=== PATIENT | female | born 2000 | race Caucasian/White ===

== ENCOUNTER → 2024-12-21 | Outpatient (CLI) | payer OTHER ==
[2024-12-21 14:31] VITALS: BP 111/76; PULSE 87; RESP 12; TEMP 98.5
--- NOTE | 2024-12-21 15:03 | P.SLEEP ---
History of Present Illness DATE: 12/21/2024 CONSULTATION/NEW PATIENT EVALUATION HISTORY OF PRESENT ILLNESS/SLEEP-WAKE EVALUATION: [id number]-year girl had b een evaluated in the sleep center for possible obstructive sleep apnea hypopnea syndrome and sleepiness. SLEEP SCHEDULE: Usually sleep schedule from 11 PM to 1011 AM. FALLING ASLEEP: Sometimes patient has difficulties with falling asleep, has TV set in bedroom. DURING SLEEP: Patient usually sleeps on the side and stomach position with snoring. No history of hypnogogical hallucinations, sleep paralysis. Questionable cataplexy on laughing. DURING THE DAY/WAKE STATE: In the morning patient wake up tired, falling asleep during the day, has problems with memory, depression and anxiety. Custer sleepiness scale is increased to 12. Patient may take nap at 12 PM. PAST MEDICAL HISTORY: Anxiety. PAST SURGICAL HISTORY: None. MEDICATIONS: Hydroxyzine 25 mg once a day. SOCIAL HISTORY: Please see below. FAMILY HISTORY: Please see below. REVIEW OF SYSTEMS: Snoring, sleepiness during the day. No fevers. No double vision. No recent chest pain. No shortness of breath. No abdominal pain. No bleeding episodes. No blood in urine. No seizure episodes. PHYSICAL EXAMINATION: GENERAL: A pleasant patient without any distress. VITAL SIGNS: Please see below, weight 103.4 pounds, BMI 19.6. HEENT: PERRLA, EOMI. Evaluation of oropharynx showed tongue protrudes midline, low position of soft palate Mallampati 3. NECK: Supple. No JVD. Thyroid is not palpable. 12-1/4 inches in circumference. LUNGS: Clear to percussion and to auscultation. Good air exchange. No wheezing or rhonchi. HEART: S1, S2 regular. No murmurs, gallops or rubs. ABDOMEN: Soft and nontender. Bowel sounds are present. No organomegaly appreciated. EXTREMITIES: No clubbing or cyanosis. [employer]: Awake, alert, and oriented x3. Cranial nerves 2 to 7 intact. There is no fasciculation or atrophy noted. No focal deficits observed. ASSESSMENT: 1. Snoring, low position of soft palate Mallampati 3, sleepiness. Possible obstructive sleep apnea hypopnea syndrome. 2. Patient sleeps long hours, does not feel refreshed if sleeps 8 hours, sleepy during the day with Custer Sleepiness Scale 12. Differential diagnosis include idiopathic hypersomnia and narcolepsy. 3. History of anxiety. PLAN: 1. Polysomnography for evaluation of patient's breathing during sleep. Multiple sleep latency test if polysomnogram will be negative for obstructive sleep apnea hypopnea syndrome. 2. Following plan after reading sleep study. 3. Preferable position during sleep on the side. 4. No driving if patient feels any sleepiness. Patient is aware of civil and criminal liability for unsafe driving. 5. Sleep hygiene with regular sleep time for at least 7.5-8 hours. Thank you very much for referring this patient for consultation. Sincerely, Easton Cadena MD, PhD, FAASM. Diplomat of [employer], Sleep Medicine Board by [employer] [employer] Director of [employer] [place] [employer] [facility] [place] cc: Richard Hastings MD Past Medical History Additional Past Medical History / Comment(s): Anxiety History of Any Multi-Drug Resistant Organisms: None Reported Past Surgical History: No Surgical Hx Reported Past Psychological History: Anxiety, Depression Additional Psychological History / Comment(s): Chronic depression - not on medication for this. Smoking Status: Never smoker Past Alcohol Use History: Rare Past Drug Use History: None Reported - Past Family History Mother Additional Family Medical History / Comment(s): Anxiety, Depression and could potentially have a blood clotting disorder (on blood thinners for the rest of her life). Father Additional Family Medical History / Comment(s): Possibly mentally ill (showed signs of hallucinations and paranoia - not sure if mental issue or possibly drug related) - per patiient Medications and Allergies Home Medications Medication Instructions Recorded Confirmed Type hydrOXYzine HCL [Hydroxyzine HCl] 25 mg PO DIRECTED 12/21/24 12/21/24 History Physical Exam Vitals: Vital Signs Temp Pulse Resp BP Pulse Ox 12/21/24 14:29 98.5 F 87 12 111/76 98 Intake and Output 12/20/24 12/21/24 12/21/24 22:59 06:59 14:59 Other: Weight 46.833 kg Sleep Note - Sleep Data ESS Total: 12 - Sleep Note Sleep Note: Temperature: 98.5 F Pulse Rate: 87 Respiratory Rate: 12 Blood Pressure: 111/76 SpO2: 98 Height: 5 ft 0.7 in Weight: 46.833 kg BMI: Neck Circumference: 12.2
== END ==
LOC: 3 N SLEEP 13:57
PROVIDERS: ATTEND Internal Medicine
DX: G47.419 Narcolepsy without cataplexy (principal); R06.83 Snoring; G47.10 Hypersomnia, unspecified; F41.9 Anxiety disorder, unspecified
CPT/HCPCS: 99202